=== PATIENT | female | born 1980 | race Caucasian/White ===

== ENCOUNTER 2021-04-15 21:17 | Emergency (ER) | payer OTHER ==
[~2021-04-15] VITALS: Ht 157.5 cm; Wt 74.8 kg
--- NOTE | 2021-04-15 21:35 | NUR ---
MD Cash Saez in do MSE.
[2021-04-15] MEDS ORDERED: DICYCLOMINE HCL LIQ 10 MG/5 ML UDC PO ONE (21:45)
[2021-04-15] MEDS ORDERED: ONDANSETRON ODT 4 MG TAB.RAPDIS SL ONE (21:45)
[2021-04-15] MEDS ORDERED: synthroid PO (21:46)
[2021-04-15] MEDS ORDERED: ONDANSETRON ODT 4 MG TAB.RAPDIS ONE (21:50)
--- NOTE | 2021-04-15 22:15 | NUR ---
[facility] does not have enough Bentyl for this patient's dose. Nursing firearms assembly supervisor notified and fax order of Bentyl to acquire for patient.
[2021-04-15] MEDS ORDERED: DICY20TA11 PO (22:41)
[2021-04-15] MEDS ORDERED: ONDA4TAB5 PO (22:41)
--- NOTE | 2021-04-15 22:50 | NUR ---
Notifed by nursing firearms assembly supervisor that there is no Bentyl currently available at [facility].
[2021-04-15 22:55] VITALS: BP 120/70
--- NOTE | 2021-04-15 22:55 | NUR ---
Patient discharged to home in stable condition. Written and verbal after care instructions given. Patient verbalizes understanding of instructions. Stressed follow up or return to ER for worsening s/s. Patient ambulates with steady gait, V/S stable, paper Rx given, and left with all personal belongings.
== END 2021-04-15 22:55 | disposition home or self-care (01) ==
LOC: ER 21:19
DX: R10.10 Upper abdominal pain, unspecified (principal); R11.0 Nausea; E89.0 Postprocedural hypothyroidism; Z20.822 Contact with and (suspected) exposure to COVID-19
CPT/HCPCS: A4663; Q0162